=== PATIENT | female | born 1955 | race Caucasian/White ===

== ENCOUNTER 2019-05-19 10:14 | Outpatient (CLI) | payer OTHER, SELFPAY ==
--- NOTE | ~2019-05-19 | US_ITS ---
US thyroid 05/19/2019 10:59 Indication: Papillary thyroid carcinoma Procedure: High-resolution ultrasound of the thyroid gland Comparison: No prior studies for comparison. Findings: The thyroid gland is surgically absent. No abnormal masses or fluid collections are identif ied in the thyroid beds. Impression: 1: Normal ultrasound post thyroidectomy. Reviewed, dictated and finalized at location B. EDURES RN Impression: 1: Normal ultrasound post thyroidectomy.
== END 2019-05-19 10:15 | disposition home or self-care (01) ==
PROVIDERS: PCP Family Medicine; Visit Provider Internal Medicine
DX: C73 Malignant neoplasm of thyroid gland (principal)
CPT/HCPCS: 76536